=== PATIENT | female | born 1995 | race African-American/Black ===

== ENCOUNTER 2022-05-01 21:44 | Emergency (ER) | payer OTHER ==
[2022-05-01] MEDS ORDERED: LIDOCAINE PATCH REMOVAL MC SCH (22:00)
[2022-05-01 22:09] VITALS: BP 124/78; PULSE 68; RESP 19; TEMP 98.2; BMI 28.1
[2022-05-01] MEDS ORDERED: diazePAM 5 MG TABLET PO ONE (22:54)
[2022-05-01] MEDS ORDERED: KETOROLAC TROMETHAMINE 30 MG/1 ML VIAL IM ONE (22:54)
[2022-05-01] MEDS ORDERED: ACETAMINOPHEN 500 MG TABLET (FP) PO ONE (22:54)
[2022-05-01] MEDS ORDERED: LIDOCAINE 5% TOPICAL PATCH TP ONE (22:54)
[2022-05-01] MEDS ORDERED: LIDOCAINE 5% TOPICAL PATCH ONE (22:55)
[2022-05-01] MEDS ORDERED: ACETAMINOPHEN 500 MG TABLET (FP) ONE (22:56)
[2022-05-01] MEDS ORDERED: KETOROLAC TROMETHAMINE 30 MG/1 ML VIAL ONE (22:56)
[2022-05-01] MEDS ORDERED: diazePAM 5 MG TABLET ONE (22:56)
== END 2022-05-02 00:11 | disposition home or self-care (01) ==
LOC: JERFT 21:44
PROC: 3E023GC Introduction of Other Therapeutic Substance into Muscle, Percutaneous Approach (ICD-10-PCS; principal; 2022-05-01)
DX: M54.2 Cervicalgia (principal); M54.6 Pain in thoracic spine; V49.50XA Passenger injured in collision with unspecified motor vehicles in traffic accident, initial encounter
CPT/HCPCS: 99284-25

== ENCOUNTER 2023-11-04 14:11 | Emergency (ER) | payer OTHER ==
[2023-11-04 14:23] VITALS: BP 103/96; PULSE 92; RESP 18; TEMP 98.4; BMI 32.3
== END 2023-11-04 15:42 | disposition home or self-care (01) ==
LOC: JERFT 14:11
DX: R05.9 Cough, unspecified (principal); R09.81 Nasal congestion; J04.0 Acute laryngitis; J45.20 Mild intermittent asthma, uncomplicated; Z20.822 Contact with and (suspected) exposure to COVID-19
CPT/HCPCS: 0241U-QW; 99283-25